=== PATIENT | male | born 1985 | race African-American/Black ===

== ENCOUNTER 2020-07-04 17:45 | Emergency (ER) | payer MEDICAID ==
[~2020-07-04] VITALS: Ht 170.2 cm; Wt 72.6 kg
--- NOTE | 2020-07-04 17:56 | NUR ---
ANNIKA FROM STREET (WALKING) TO ER BED 13. AAOX4. NOT IN RESP DISTRESS. AMBULATORY. CAME IN FOR SUICIDAL IDEATION WITH PLAN TO RUN INTO TRAFFIC. PT REPORTS THAT HE WANT TO GO BACK HOME TO HIS MOTHER IN [place] AND BEEN FEELING SAD AND STOCK. DENIES HI. DENIES VISUAL AND AUDITORY HALLUCINATION. PT IS STRIPPED OF HIS CLOTHING AND GOWNED, BELONGINGS PLACED ON LOCKER. VISUALLY INSPECTED AND 1:1 SITTER AT BEDSIDE. WAS A THE BEDSIDE FOR EVAL. PLASTICATOR AT BEDSIDE FOR BLOOD DRAW
[2020-07-04 18:03] LABS: BASOPHILS % (AUTO) 0.5 % (0.0-2.0); EOSINOPHILS % (AUTO) 0.7 % (0.0-6.0); HEMATOCRIT 43 % (39-51); HEMOGLOBIN 14.6 g/dL (13.5-17.5); LYMPHOCYTES # (AUTO) 1.2 /CMM (0.8-4.8); LYMPHOCYTES % (AUTO) 24.1 % (20.0-44.0); MEAN CORPUSCULAR HGB CONC 34 g/dl (31.0-36.0); MEAN CORPUSCULAR VOLUME 90 fL (80-96); MONOCYTES # (AUTO) 0.6 /CMM (0.1-1.30); MONOCYTES % (AUTO) 11.9 % (2.0-12.0); NEUTROPHILS % (AUTO) 62.8 % (43.0-81.0); PLATELET COUNT (AUTO) 246 /CMM (150-450); RED BLOOD CELL COUNT(AUTO) 4.83 MIL/uL (4.5-6.0); WHITE BLOOD COUNT (AUTO) 4.8 K/uL (4.3-11.0)
[2020-07-04 18:17] LABS: CALCIUM, SERUM 8.9 mg/dL (8.5-10.1); CARBON DIOXIDE 27 mmol/L (21-32); CHLORIDE 100 mmol/L (98-107); CREATININE 1.2 mg/dL (0.6-1.3); GLUCOSE 108 mg/dL (74-106); POTASSIUM 3.7 mmol/L (3.5-5.1); SODIUM SERUM 137 mmol/L (136-145); UREA NITROGEN, BLOOD 16 mg/dL (7-18)
[2020-07-04 18:23] LABS: ALANINE AMINOTRANSFERASE 33 U/L (12-78); ALBUMIN 3.9 g/dL (3.4-5.0); ALCOHOL, BLOOD < 3 mg/dL (0-0); ALKALINE PHOSPHATASE 67 U/L (46-116); ASPARTATE AMINOTRANSFERASE 29 U/L (15-37); BILIRUBIN,DIRECT 0.2 mg/dL (0.0-0.2); BILIRUBIN,TOTAL 0.8 mg/dL (0.2-1.0); TOTAL PROTEIN, SERUM 8.1 g/dL (6.4-8.2)
[2020-07-04 18:26] LABS: ACETAMINOPHEN < 2 ug/ml (10-30)
[2020-07-04 19:45] LABS: BILIRUBIN,URINE Negative (NEGATIVE); BLOOD, URINE Negative Ery/uL (NEGATIVE); COLOR,URINE YELLOW (YELLOW); LEUKOCYTE ESTERASE ,URINE Negative (NEGATIVE); NITRITE, URINE Negative (NEGATIVE); PROTEIN,URINE Negative (NEGATIVE); UGLUCOSE Negative (NEGATIVE); UROBILINOGEN,URINE 0.2 EU/dL (0.2)
[2020-07-04 19:54] LABS: BACTERIA,URINE Rare /HPF (None Seen); RBC,URINE NONE SEEN /HPF (0-2); SQUAMOUS EPITHELIAL CELL,UR Few /HPF (None Seen); WBC,URINE NONE SEEN /HPF (0-3)
[2020-07-04] MEDS ORDERED: OLANZAPINE 10 MG VIAL IM ONE (20:30)
--- NOTE | 2020-07-04 21:00 | NUR ---
PT AAOX4. REMAINS CALM AND COOPERATIVE, REFUSING ZYPREXA IM AT THIS TIME. MD SMART
--- NOTE | 2020-07-04 22:17 | NUR ---
CLINICAL INFORMATION FAXED TO [facility]
--- NOTE | 2020-07-05 05:09 | NUR ---
TRANSFER INFORMATION: PT ACCEPTED TO [facility] ACCEPTING MD: DR. TAMAYO NUMBER FOR REPORT: [phone] EXT [phone]
--- NOTE | 2020-07-05 05:18 | NUR ---
CALLED [facility] FOR TRANSPORTATION. ETA [phone] Addendum: 07/05/20 at 0524 by RASTA BED ASSIGNMENT [id number]
--- NOTE | 2020-07-05 05:22 | NUR ---
REPORT GIVEN TO SRAVANTHI MCNAIR FROM [facility] FOR [facility]
[2020-07-05 06:57] VITALS: BP 152/96
--- NOTE | 2020-07-05 07:03 | NUR ---
REPORT GIVEN TO [facility] FOR TRANSPORTATION CAR[place]
== END 2020-07-05 07:04 ==
LOC: ER 17:49
DX: R45.851 Suicidal ideations (principal); F43.10 Post-traumatic stress disorder, unspecified; Z91.14 Patient's other noncompliance with medication regimen; Z20.828 Contact with and (suspected) exposure to other viral communicable diseases; F31.9 Bipolar disorder, unspecified; F19.10 Other psychoactive substance abuse, uncomplicated; R03.0 Elevated blood-pressure reading, without diagnosis of hypertension
CPT/HCPCS: 36415; 80048; 80076; 80299; 80307; 80320; 81001; 85025; 87426; 99285; C9803; G0480

== ENCOUNTER 2021-03-26 19:07 | Emergency (ER) | payer MEDICAID, OTHER ==
[~2021-03-26] VITALS: Ht 170.2 cm; Wt 72.6 kg
--- NOTE | 2021-03-26 19:07 | NUR ---
PT AAOX4. BIBRA39 FROM [facility] VN C/O SOB "ANXIETY." PLACED IN BED 13 ON MONITOR AND PULSE OX. VSS. NO ACUTE DISTRSS NOTED. ER MD AT BEDSIDE FOR EVAL. AWAITING ORDERS.
[2021-03-26 21:32] LABS: BASOPHILS % (AUTO) 0.6 % (0.0-2.0); EOSINOPHILS % (AUTO) 3.5 % (0.0-6.0); HEMATOCRIT 43 % (39-51); HEMOGLOBIN 14.4 g/dL (13.5-17.5); LYMPHOCYTES % (AUTO) 53.6 % (20.0-44.0); MEAN CORPUSCULAR HGB CONC 33 g/dl (31.0-36.0); MEAN CORPUSCULAR VOLUME 95 fL (80-96); MONOCYTES # (AUTO) 0.4 K/uL (0.1-1.30); MONOCYTES % (AUTO) 10.4 % (2.0-12.0); NEUTROPHILS # (AUTO) 1.2 K/uL (1.8-8.9); NEUTROPHILS % (AUTO) 31.9 % (43.0-81.0); PLATELET COUNT (AUTO) 203 K/uL (150-450); RED BLOOD CELL COUNT(AUTO) 4.57 MIL/uL (4.5-6.0); WHITE BLOOD COUNT (AUTO) 3.7 K/uL (4.3-11.0)
[2021-03-26 21:48] LABS: CALCIUM, SERUM 8.8 mg/dL (8.5-10.1); CARBON DIOXIDE 34 mmol/L (21-32); CHLORIDE 106 mmol/L (98-107); GLUCOSE 81 mg/dL (74-106); POTASSIUM 4.8 mmol/L (3.5-5.1); SODIUM SERUM 142 mmol/L (136-145); UREA NITROGEN, BLOOD 20 mg/dL (7-18)
[2021-03-26 21:54] LABS: ALANINE AMINOTRANSFERASE 13 U/L (12-78); ALBUMIN 3.1 g/dL (3.4-5.0); ALCOHOL, BLOOD < 3 mg/dL (0-0); ALKALINE PHOSPHATASE 51 U/L (46-116); ASPARTATE AMINOTRANSFERASE 8 U/L (15-37); BILIRUBIN,DIRECT 0.1 mg/dL (0.0-0.2); BILIRUBIN,TOTAL 0.2 mg/dL (0.2-1.0); TOTAL PROTEIN, SERUM 6.7 g/dL (6.4-8.2)
[2021-03-26 21:55] LABS: ACETAMINOPHEN 0 ug/ml (10-30)
[2021-03-26 22:02] LABS: BILIRUBIN,URINE NEGATIVE (NEGATIVE); COLOR,URINE YELLOW (YELLOW); LEUKOCYTE ESTERASE ,URINE NEGATIVE (NEGATIVE); NITRITE, URINE NEGATIVE (NEGATIVE); PH,URINE 7.5 (5.0-8.0); PROTEIN,URINE NEGATIVE (NEGATIVE); UGLUCOSE NEGATIVE (NEGATIVE); UROBILINOGEN,URINE 0.2 EU/dL (0.2)
--- NOTE | 2021-03-26 23:45 | NUR ---
FACESHEET AND CLINICALS FAXED TO [facility].
--- NOTE | 2021-03-27 03:05 | NUR ---
PT ACCEPTED TO [facility] BY DR JOHNSON. # FOR REPORT [phone]. UNIT 2
--- NOTE | 2021-03-27 03:11 | NUR ---
PER [facility] AT [facility], RESERVATION NUMBER IS [id number]. WILL CALL BACK WITH SOONEST ETA.
--- NOTE | 2021-03-27 03:16 | NUR ---
[facility] ETA PER [facility] AT [facility] IS 0430.
[2021-03-27 03:35] VITALS: BP 131/72
--- NOTE | 2021-03-27 03:37 | NUR ---
REPORT GIVEN TO FLORA FISHMAN FOR CAROLIN
--- NOTE | 2021-03-27 05:11 | NUR ---
REPORT GIVEN TO EMT, PT TRANSFERED TO [facility].
--- NOTE | 2021-03-27 05:24 | NUR ---
[facility] at bedside for transport to [facility]
[2021-03-27] MEDS ORDERED: DIVA500T2 PO (15:08)
[2021-03-27] MEDS ORDERED: BICT1TAB PO (15:08)
== END 2021-03-27 05:40 ==
LOC: ER 19:10
DX: F41.9 Anxiety disorder, unspecified (principal); R45.851 Suicidal ideations; F32.9 Major depressive disorder, single episode, unspecified; F19.10 Other psychoactive substance abuse, uncomplicated; R07.89 Other chest pain; F43.10 Post-traumatic stress disorder, unspecified; Z59.0 Homelessness; Z20.822 Contact with and (suspected) exposure to COVID-19
CPT/HCPCS: 36415; 71045; 80048; 80076; 80143; 80307; 80320; 81003; 85025; 87426; 93005; 99285; C9803; G0480

== ENCOUNTER 2021-03-27 13:18 | Emergency (ER) | payer OTHER ==
[~2021-03-27] VITALS: Ht 170.2 cm; Wt 68.0 kg
[2021-03-27 14:56] VITALS: BP 137/64
[2021-03-27] MEDS ORDERED: BICT1TAB PO (15:08)
[2021-03-27] MEDS ORDERED: DIVA500T2 PO (15:08)
== END 2021-03-27 15:31 | disposition home or self-care (01) ==
LOC: ER 13:21
DX: Z76.0 Encounter for issue of repeat prescription (principal); G40.909 Epilepsy, unspecified, not intractable, without status epilepticus; F43.10 Post-traumatic stress disorder, unspecified; F32.9 Major depressive disorder, single episode, unspecified; F17.200 Nicotine dependence, unspecified, uncomplicated; Z79.899 Other long term (current) drug therapy

== ENCOUNTER 2022-03-10 09:26 | Emergency (ER) | payer MEDICAID, OTHER ==
[~2022-03-10] VITALS: Ht 177.8 cm; Wt 68.0 kg
[~2022-03-10 09:26] MED LIST: BICT1TAB PO; DIVA500T2 PO
[2022-03-10 09:35] VITALS: BP 145/102
[2022-03-10] MEDS ORDERED: DIVA500T2 PO (09:38)
== END 2022-03-10 09:46 | disposition home or self-care (01) ==
LOC: ER 09:32
DX: Z76.0 Encounter for issue of repeat prescription (principal); F32.A Depression, unspecified; F17.200 Nicotine dependence, unspecified, uncomplicated; Z79.899 Other long term (current) drug therapy

== ENCOUNTER 2022-03-28 22:06 | Emergency (ER) | payer MEDICAID ==
[~2022-03-28] VITALS: Ht 177.8 cm; Wt 65.8 kg
[2022-03-28 22:35] VITALS: BP 128/97
[2022-03-28] MEDS ORDERED: BICT1TAB PO (22:42)
[2022-03-28] MEDS ORDERED: AMOX500T2 PO (22:42)
== END 2022-03-28 23:08 | disposition home or self-care (01) ==
LOC: ER 22:09
DX: Z76.0 Encounter for issue of repeat prescription (principal); F32.A Depression, unspecified; F43.10 Post-traumatic stress disorder, unspecified; F17.200 Nicotine dependence, unspecified, uncomplicated; Z79.899 Other long term (current) drug therapy

== ENCOUNTER 2022-04-17 16:10 | Emergency (ER) | payer MEDICAID ==
[~2022-04-17 16:10] MED LIST changes: +AMOX500T2 PO
--- NOTE | 2022-04-17 17:15 | NUR ---
Caller - No response
--- NOTE | 2022-04-17 17:35 | NUR ---
Caller - No response- Rick
== END 2022-04-17 17:38 | disposition home or self-care (01) ==
LOC: ER 16:12
DX: Z53.21 Procedure and treatment not carried out due to patient leaving prior to being seen by health care provider (principal)

== ENCOUNTER 2022-05-08 02:20 | Emergency (ER) | payer MEDICAID ==
[~2022-05-08] VITALS: Ht 177.8 cm; Wt 63.5 kg
[2022-05-08 02:30] VITALS: BP 137/77
== END 2022-05-08 04:29 | disposition home or self-care (01) ==
LOC: ER 02:22
DX: R05.9 Cough, unspecified (principal); F32.A Depression, unspecified; F17.200 Nicotine dependence, unspecified, uncomplicated; Z79.899 Other long term (current) drug therapy
CPT/HCPCS: 71045-TC

== ENCOUNTER 2022-06-13 22:09 | Emergency (ER) | payer MEDICAID ==
[~2022-06-13] VITALS: Ht 177.8 cm; Wt 65.8 kg
--- NOTE | 2022-06-13 22:31 | NUR ---
BIBSELF C/O COUGH AND "DOT" ON L KNEE X1 DAY. A/OX4. TOLERATING R/A WELL WITH NO RESP DISTRESS. AMBULATORY WITH STEADY GAIT. SAFETY MEASURES IN PLACE.
--- NOTE | 2022-06-13 22:48 | NUR ---
DETASSELER AT PT'S BEDSIDE
[2022-06-13] MEDS ORDERED: IBUP-1957 PO (23:20)
[2022-06-13 23:28] VITALS: BP 121/67
--- NOTE | 2022-06-13 23:28 | NUR ---
Patient discharged to home in stable condition. RX Written and verbal after care instructions given. Patient verbalizes understanding of instruction. PT ambulatory with a steady gait
== END 2022-06-13 23:29 | disposition home or self-care (01) ==
LOC: ER 22:11
DX: M25.562 Pain in left knee (principal); R05.9 Cough, unspecified; F32.A Depression, unspecified; F17.200 Nicotine dependence, unspecified, uncomplicated; Z60.2 Problems related to living alone; Z79.899 Other long term (current) drug therapy
CPT/HCPCS: 71045-TC; 73560-TC

== ENCOUNTER 2022-06-19 11:25 | Emergency (ER) | payer MEDICAID, OTHER ==
[~2022-06-19] VITALS: Ht 177.8 cm; Wt 68.0 kg
[~2022-06-19 11:25] MED LIST changes: +IBUP-1957 PO
--- NOTE | 2022-06-19 11:45 | NUR ---
[facility]IBfamily ambulatory left knee pain/abscess x 6 days 03/28 ps
--- NOTE | 2022-06-19 11:50 | NUR ---
Established IV line 20g left AC
--- NOTE | 2022-06-19 12:10 | NUR ---
blood sample obtained sent to lab
[2022-06-19 12:18] LABS: BASOPHILS % (AUTO) 0.1 % (0.0-2.0); EOSINOPHILS % (AUTO) 0.6 % (0.0-6.0); HEMATOCRIT 38 % (39-51); HEMOGLOBIN 12.5 g/dL (13.5-17.5); LYMPHOCYTES # (AUTO) 1.4 K/uL (0.8-4.8); LYMPHOCYTES % (AUTO) 10.3 % (20.0-44.0); MEAN CORPUSCULAR HGB CONC 33 g/dl (31.0-36.0); MEAN CORPUSCULAR VOLUME 90 fL (80-96); MONOCYTES # (AUTO) 0.9 K/uL (0.1-1.30); MONOCYTES % (AUTO) 6.6 % (2.0-12.0); NEUTROPHILS % (AUTO) 82.4 % (43.0-81.0); PLATELET COUNT (AUTO) 256 K/uL (150-450); RED BLOOD CELL COUNT(AUTO) 4.25 MIL/uL (4.5-6.0); WHITE BLOOD COUNT (AUTO) 13.4 K/uL (4.3-11.0)
[2022-06-19 12:31] LABS: CALCIUM, SERUM 9.2 mg/dL (8.5-10.1); CREATININE 1.1 mg/dL (0.6-1.3); POTASSIUM 3.9 mmol/L (3.5-5.1)
--- NOTE | 2022-06-19 12:41 | NUR ---
medicated as ordered
[2022-06-19] MEDS: CLINDAMYCIN 600 MG in IV D5W 100 ML IV ONE (12:42)
[2022-06-19] MEDS ORDERED: CLIN300C12 PO (14:31)
--- NOTE | 2022-06-19 14:38 | NUR ---
IV removed. Catheter intact and site benign. Pressure and 4x4 applied to site. No bleeding noted.
--- NOTE | 2022-06-19 14:38 | NUR ---
Patient discharged to home in stable condition. Written and verbal after care instructions given. Patient verbalizes understanding of instruction.
[2022-06-19 14:39] VITALS: BP 123/77
== END 2022-06-19 14:41 | disposition home or self-care (01) ==
LOC: ER 11:29
DX: L03.116 Cellulitis of left lower limb (principal); F32.A Depression, unspecified; F17.200 Nicotine dependence, unspecified, uncomplicated; Z60.2 Problems related to living alone; Z79.899 Other long term (current) drug therapy
CPT/HCPCS: 99284; 96365; 85025; 80048; 36415; J3490; J7060

== ENCOUNTER 2022-08-12 20:43 | Emergency (ER) | payer OTHER ==
[~2022-08-12] VITALS: Ht 177.8 cm; Wt 65.8 kg
[~2022-08-12 20:43] MED LIST changes: +CLIN300C12 PO
[2022-08-12 21:05] VITALS: BP 121/81
== END 2022-08-12 21:07 | disposition home or self-care (01) ==
LOC: ER 20:46
DX: Z00.8 Encounter for other general examination (principal); F17.210 Nicotine dependence, cigarettes, uncomplicated; Z60.2 Problems related to living alone; Z79.899 Other long term (current) drug therapy

== ENCOUNTER 2022-08-14 01:13 | Emergency (ER) | payer OTHER ==
[~2022-08-14] VITALS: Ht 177.8 cm; Wt 63.5 kg
[2022-08-14 01:35] VITALS: BP 135/78
--- NOTE | 2022-08-14 02:12 | NUR ---
[employer]BER WITH PT
--- NOTE | 2022-08-14 02:53 | NUR ---
Patient discharged to home in stable condition. Written and verbal after care instructions given. Patient verbalizes understanding of instruction.
== END 2022-08-14 02:54 | disposition home or self-care (01) ==
LOC: ER 01:14
DX: S93.401A Sprain of unspecified ligament of right ankle, initial encounter (principal); S90.424A Blister (nonthermal), right lesser toe(s), initial encounter; F32.A Depression, unspecified; F17.200 Nicotine dependence, unspecified, uncomplicated; Z60.2 Problems related to living alone; Z79.899 Other long term (current) drug therapy; W01.0XXA Fall on same level from slipping, tripping and stumbling without subsequent striking against object, initial encounter; Y93.01 Activity, walking, marching and hiking; Y92.89 Other specified places as the place of occurrence of the external cause; Y99.8 Other external cause status
CPT/HCPCS: 73610-TC; 73630-TC

== ENCOUNTER 2022-09-30 14:51 | Emergency (ER) | payer OTHER ==
[~2022-09-30] VITALS: Ht 177.8 cm; Wt 79.4 kg
[2022-09-30] MEDS ORDERED: OLANZAPINE 5 MG TABLET ONE (16:53)
[2022-09-30] MEDS ORDERED: OLANZAPINE 5 MG TABLET PO ONE (17:00)
[2022-09-30 17:29] LABS: BASOPHILS % (AUTO) 0.6 % (0.0-2.0); HEMATOCRIT 46 % (39-51); HEMOGLOBIN 14.3 g/dL (13.5-17.5); LYMPHOCYTES # (AUTO) 1.9 K/uL (0.8-4.8); LYMPHOCYTES % (AUTO) 38.7 % (20.0-44.0); MEAN CORPUSCULAR HGB CONC 32 g/dl (31.0-36.0); MEAN CORPUSCULAR VOLUME 89 fL (80-96); MONOCYTES # (AUTO) 0.4 K/uL (0.1-1.30); MONOCYTES % (AUTO) 8.7 % (2.0-12.0); NEUTROPHILS # (AUTO) 2.6 K/uL (1.8-8.9); PLATELET COUNT (AUTO) 285 K/uL (150-450); RED BLOOD CELL COUNT(AUTO) 5.11 MIL/uL (4.5-6.0)
[2022-09-30 17:40] LABS: CALCIUM, SERUM 9.5 mg/dL (8.5-10.1); CARBON DIOXIDE 26 mmol/L (21-32); CHLORIDE 102 mmol/L (98-107); GLUCOSE 94 mg/dL (74-106); POTASSIUM 4.6 mmol/L (3.5-5.1); SODIUM SERUM 135 mmol/L (136-145); UREA NITROGEN, BLOOD 29 mg/dL (7-18)
--- NOTE | 2022-09-30 17:40 | NUR ---
COVID SWAB COLLECTED AND SENT TO LAB
[2022-09-30 17:57] LABS: ALANINE AMINOTRANSFERASE 27 U/L (12-78); ALKALINE PHOSPHATASE 75 U/L (46-116); ASPARTATE AMINOTRANSFERASE 29 U/L (15-37); BILIRUBIN,DIRECT 0.2 mg/dL (0.0-0.2); TOTAL PROTEIN, SERUM 8.2 g/dL (6.4-8.2)
[2022-09-30 18:00] LABS: ACETAMINOPHEN < 10 ug/ml (10-30); ALCOHOL, BLOOD < 3 mg/dL (0-0)
--- NOTE | 2022-09-30 18:20 | NUR ---
urine sample obtained
[2022-09-30 18:54] LABS: BILIRUBIN,URINE 1+ (NEGATIVE); COLOR,URINE YELLOW (YELLOW); LEUKOCYTE ESTERASE ,URINE NEGATIVE (NEGATIVE); NITRITE, URINE NEGATIVE (NEGATIVE); PROTEIN,URINE TRACE mg/dl (NEGATIVE); UGLUCOSE NEGATIVE (NEGATIVE); UROBILINOGEN,URINE 0.2 EU/dL (0.2)
[2022-09-30 19:05] LABS: BACTERIA,URINE None seen /HPF (None Seen); MUCUS,URINE Few /LPF (None Seen); RBC,URINE 0-2 /HPF (0-2); WBC,URINE 0-2 /HPF (0-3)
--- NOTE | 2022-09-30 20:11 | NUR ---
CLINICALS FAXED TO [facility]
--- NOTE | 2022-10-01 08:33 | NUR ---
the patient was seen and assessed at bedside - the patient denies suicidal thoughts, or homicidal ideation presented to dr. scott the patient can be discharged I spoke to SUDHA TravisW will talk to to the patient and offer community resource The patient request's taxi voucehr or bus card.
--- NOTE | 2022-10-01 08:50 | NUR ---
SS Consult: SS Consult requested for homelessness. The pt. is a 37-year-old Black male pt. who is came into ED with C/O feeling unsafe per EMR. Upon SS consult, the pt. is Alert & Oriented x 4 and makes good eye contact. The pt. appears well-groomed. Pt. has elevated mood & affect. Pt. has pressured speech and tangential thought process. Pt. was cooperative throughout interview. The pt. denies current SI/HI and denies hallucinations. Pt. states he feels safe and states he has an appointment with [facility] in [place] for transitional housing. SW explored pt.s living situation. Patient states he is currently experiencing homelessness. SW explored pt.s mental health Hx. Pt. refused to discuss his mental health Hx. CRISTINE explored pt.s drug & ETOH use. Pt. denies drug use and alcohol. However, pt. tested positive for methamphetamine. Per pt. he is independent with ambulation and his ADLs. Pt. states he receives food stamps and his monthly inheritance allowance. Plan: CRISTINE provided pt. with bus TAP card to go to his transitional housing appointment. CRISTINE also provided pt. with shoes and resources for: shelters, hot meals, showers, mental health clinicals and crisis lines as well as drug rehabs. Pt. accepted resources. Winter Fci list : [facility]; AB Adult WSP site; DM Adult WSP site; and WFD Adult WSP site; instruction to call 211 for availability. Year-round shelters: [facility] [address] [place] [address] ; [facility] [address] [place] [address]; [facility] [id number] [facility]. [facility] [address] Hygiene: [facility]: [address] [place]. [place] ; [facility] [address] [facility] ; [facility] [address] . Food Resources: [place] [facility] at [facility]- [address]; Meet Each Need with Dignity ([facility]) [address] [address]; [facility] [address] [facility]; [facility] [address] Berg[address]. Mental Health resources provided: [facility] [address] [place] [address] ; [facility] [address] [facility] [address], [place] [address] ; [facility] [address] [place] [address] ; [facility] [address] [place], [place] [id number] Healthcare Clinics: [facility] [address], [address] [place]. [place] ; [facility] [address] [facility] [address] [place] [address]; [facility] [address] [facility] [place] [phone]) [phone] Counseling--Outpatient [facility] [address] [facility], [place] [address] (Specializes in in-depth psychotherapy for emotional distress: anxiety, depression, interpersonal conflicts, life transitions, childhood abuse) [facility] [address] [place] [address] (Assist with solving problem marital difficulties, separation & divorce, aging parents, & grief, chronic & terminal illness) [facility] [address] [place] [address] (Deal with loss & grief, anxiety, marital difficulties) Homebound/Mental Health Services [address] [facility], [address] [place] [address] (Provide in-home mental services to people who are incapable of leaving their homes) [facility] Senior Service/Resource Center [address] [place] [address] [facility] [address] [place] [address] PSYCHIATRIC OUTPATIENT SERVICES [facility] Partial Hospitalization and Intensive Outpatient Program (Managed Care and [place] Only)[address] [facility] [phone] [facility] Partial Hospitalization and Outpatient [address] [place], [place] [phone] [facility] [address] [place], [place] [phone] [facility] Partial Hospitalization and Outpatient [id number] EmeliKennedy Krieger Institutepiotr, [phone] Substance Abuse resources provided included: [facility] Substance Abuse Self-Helpline ([facility]) ; [facility]LP [address] [facility]. [place] [address] ; [facility] [address] [facility] [address] ; [facility] Rehabilitation Program [address] [facility] [address] ; [facility] [address] [phone] ; [facility] [address] [facility] [address] ; [facility] [address] [facility] [phone] ; [facility] Substance Abuse Helpline(SAS)-[facility] ; [facility] ; [facility] [place]; [facility] [place]; [facility] [place]; [facility] Harris Diamondpiotr; [facility] [place]; [place] Jean[place]; [facility] V[place]; Located Within [facility], [facility]. Jim Zamora; Alcoholics Anonymous -SFV; Nahomy ; Marijuana Anonymous -SFV; Narcotics Anonymous www.na.org;
--- NOTE | 2022-10-01 09:07 | NUR ---
Patient discharged to home in stable condition. Written and verbal after care instructions given. Patient verbalizes understanding of instruction.
[2022-10-01 09:08] VITALS: BP 131/79
== END 2022-10-01 09:09 | disposition home or self-care (01) ==
LOC: ER 14:58
DX: F29 Unspecified psychosis not due to a substance or known physiological condition (principal); F15.10 Other stimulant abuse, uncomplicated; Z59.00 Homelessness unspecified; Z20.822 Contact with and (suspected) exposure to COVID-19
CPT/HCPCS: 99285; 85025; 80048; 80076; 81001; 36415; 87426; 80143; 80320; 80307; C9803; G0480

== ENCOUNTER 2022-10-02 21:15 | Emergency (ER) | payer OTHER ==
[~2022-10-02] VITALS: Ht 177.8 cm; Wt 83.9 kg
[2022-10-02 21:55] VITALS: BP 146/80
[2022-10-02 23:22] LABS: BASOPHILS % (AUTO) 1.1 % (0.0-2.0); EOSINOPHILS % (AUTO) 2.2 % (0.0-6.0); HEMATOCRIT 43 % (39-51); HEMOGLOBIN 13.8 g/dL (13.5-17.5); LYMPHOCYTES # (AUTO) 2.2 K/uL (0.8-4.8); LYMPHOCYTES % (AUTO) 56.3 % (20.0-44.0); MEAN CORPUSCULAR HGB CONC 32 g/dl (31.0-36.0); MEAN CORPUSCULAR VOLUME 88 fL (80-96); MONOCYTES # (AUTO) 0.4 K/uL (0.1-1.30); MONOCYTES % (AUTO) 9.8 % (2.0-12.0); NEUTROPHILS # (AUTO) 1.2 K/uL (1.8-8.9); NEUTROPHILS % (AUTO) 30.6 % (43.0-81.0); PLATELET COUNT (AUTO) 255 K/uL (150-450); RED BLOOD CELL COUNT(AUTO) 4.85 MIL/uL (4.5-6.0); WHITE BLOOD COUNT (AUTO) 3.9 K/uL (4.3-11.0)
[2022-10-02 23:55] LABS: ALANINE AMINOTRANSFERASE 26 U/L (12-78); ALBUMIN 3.5 g/dL (3.4-5.0); ALCOHOL, BLOOD < 3 mg/dL (0-0); ALKALINE PHOSPHATASE 72 U/L (46-116); ASPARTATE AMINOTRANSFERASE 19 U/L (15-37); BILIRUBIN,DIRECT 0.1 mg/dL (0.0-0.2); BILIRUBIN,TOTAL 0.3 mg/dL (0.2-1.0); CALCIUM, SERUM 8.6 mg/dL (8.5-10.1); CARBON DIOXIDE 27 mmol/L (21-32); CHLORIDE 108 mmol/L (98-107); CREATININE 0.9 mg/dL (0.6-1.3); GLUCOSE 151 mg/dL (74-106); POTASSIUM 4.1 mmol/L (3.5-5.1); SODIUM SERUM 143 mmol/L (136-145); TOTAL PROTEIN, SERUM 7.3 g/dL (6.4-8.2); UREA NITROGEN, BLOOD 30 mg/dL (7-18)
== END 2022-10-02 23:16 | disposition home or self-care (01) ==
LOC: ER 21:17
DX: R45.1 Restlessness and agitation (principal); F17.200 Nicotine dependence, unspecified, uncomplicated; Z60.2 Problems related to living alone; Z79.899 Other long term (current) drug therapy
CPT/HCPCS: 36415; 80048-TC; 80076-TC; 85025-TC; G0480

== ENCOUNTER 2024-02-11 22:43 | Emergency (ER) | payer OTHER ==
[~2024-02-11] VITALS: Ht 177.8 cm; Wt 72.6 kg
[2024-02-11 22:43] VITALS: BP 140/77; TEMP 98.1; O2SAT 98
[2024-02-11 23:57] LABS: BASOPHILS % (AUTO) 0.4 % (0.0-2.0); EOSINOPHILS # (AUTO) 0.1 K/uL (0.0-0.7); EOSINOPHILS % (AUTO) 2.5 % (0.0-6.0); HEMATOCRIT 41 % (39-51); HEMOGLOBIN 13.8 g/dL (13.5-17.5); LYMPHOCYTES # (AUTO) 2.3 K/uL (0.8-4.8); LYMPHOCYTES % (AUTO) 45.3 % (20.0-44.0); MEAN CORPUSCULAR HEMOGLOBIN 29 PG (26.0-33.0); MEAN CORPUSCULAR HGB CONC 34 g/dl (31.0-36.0); MEAN CORPUSCULAR VOLUME 87 fL (80-96); MONOCYTES # (AUTO) 0.5 K/uL (0.1-1.30); NEUTROPHILS # (AUTO) 2.1 K/uL (1.8-8.9); NEUTROPHILS % (AUTO) 42.8 % (43.0-81.0); PLATELET COUNT (AUTO) 251 K/uL (150-450); RED BLOOD CELL COUNT(AUTO) 4.69 MIL/uL (4.5-6.0); RED CELL DISTRIBUTION WIDTH 14.4 % (11.5-15.0)
[2024-02-12 00:01] LABS: APPEARANCE,URINE CLEAR (CLEAR); BILIRUBIN,URINE NEGATIVE (NEGATIVE); BLOOD, URINE NEGATIVE Ery/uL (NEGATIVE); COLOR,URINE YELLOW (YELLOW); KETONES,URINE NEGATIVE (NEGATIVE); LEUKOCYTE ESTERASE ,URINE NEGATIVE (NEGATIVE); NITRITE, URINE NEGATIVE (NEGATIVE); PROTEIN,URINE NEGATIVE (NEGATIVE); UGLUCOSE NEGATIVE (NEGATIVE); UROBILINOGEN,URINE 0.2 EU/dL (0.2)
[2024-02-12] MEDS ORDERED: AMOXICILLIN TRIHYDRATE 250 MG CAPSULE ONE (00:04)
[2024-02-12] MEDS ORDERED: IBUPROFEN 600 MG TABLET ONE (00:05)
[2024-02-12] MEDS: IBUPROFEN 600 MG TABLET PO ONE (00:07)
[2024-02-12] MEDS: AMOXICILLIN TRIHYDRATE 500 MG CAPSULE PO ONE (00:07)
[2024-02-12 00:08] LABS: CALCIUM, SERUM 8.5 mg/dL (8.5-10.1); CARBON DIOXIDE 29 mmol/L (21-32); CHLORIDE 102 mmol/L (98-107); GLUCOSE 94 mg/dL (74-106); POTASSIUM 3.9 mmol/L (3.5-5.1); SODIUM SERUM 140 mmol/L (136-145); UREA NITROGEN, BLOOD 20 mg/dL (7-18)
[2024-02-12 00:11] LABS: AMPHETAMINE, URINE NEGATIVE (NEGATIVE); BARBITURATE, URINE NEGATIVE (NEGATIVE); BENZODIAZEPINE, URINE NEGATIVE (NEGATIVE); CANNABINOID, URINE NEGATIVE (NEGATIVE); COCCAINE, URINE NEGATIVE (NEGATIVE); OPIATE, URINE NEGATIVE (NEGATIVE); PHENCYCLIDINE SCREEN,URINE NEGATIVE (NEGATIVE)
[2024-02-12 00:14] LABS: ALANINE AMINOTRANSFERASE 28 U/L (12-78); ALBUMIN 3.5 g/dL (3.4-5.0); ALCOHOL, BLOOD < 3 mg/dL (0-10); ALKALINE PHOSPHATASE 73 U/L (46-116); ASPARTATE AMINOTRANSFERASE 14 U/L (15-37); BILIRUBIN,DIRECT 0.1 mg/dL (0.0-0.2); BILIRUBIN,TOTAL 0.3 mg/dL (0.2-1.0); TOTAL PROTEIN, SERUM 8.1 g/dL (6.4-8.2)
[2024-02-12 00:15] LABS: ACETAMINOPHEN <10 ug/ml (10-30); SALICYLATE 0.9 mg/dL (2.8-20.0)
[2024-02-12] MEDS ORDERED: AMOX500C2 PO (00:43)
== END 2024-02-12 04:00 ==
LOC: ER 22:46
DX: R45.851 Suicidal ideations (principal); F32.A Depression, unspecified; F17.200 Nicotine dependence, unspecified, uncomplicated; Z79.899 Other long term (current) drug therapy; Z20.822 Contact with and (suspected) exposure to COVID-19; Z60.2 Problems related to living alone
CPT/HCPCS: 36415; 80048-TC; 80076-TC; 85025-TC; G0480